=== PATIENT | female | born 2000 | race Two or more races ===

== ENCOUNTER 2023-09-15 07:32 | Outpatient (REF) | payer MEDICAID, SELFPAY ==
--- NOTE | ~2023-09-15 | US_ITS ---
EXAMINATION: US RETROPERITONEAL LIMITED (RENAL ONLY) CLINICAL INFORMATION: Low back pain. COMPARISON: None available. TECHNIQUE: Real-time imaging of the kidneys. FINDINGS: RIGHT KIDNEY: 9.9 x 3.9 x 4.8 cm (SAG x AP x TRV). The kidney is normal in size, contour, and echogenicity. Renal cortical thickness is normal. No calculi or focal parenchymal lesions. No hydronephrosis. LEFT KIDNEY: 9.3 x 5.1 x 4.3 cm (SAG x AP x TRV). The kidney is normal in size, contour, and echogenicity. Renal cortical thickness is normal. No calculi or focal parenchymal lesions. No hydronephrosis. US/US renal BI IMPRESSION: Unremarkable renal ultrasound..
== END 2023-09-15 07:33 | disposition home or self-care (01) ==
LOC: HO.UMASIMG 07:32
PROVIDERS: Visit Provider Nurse Practitioner
DX: M54.50 Low back pain, unspecified (principal)
CPT/HCPCS: 76775